=== PATIENT | male | born 1940 | race Caucasian/White ===

== ENCOUNTER 2017-06-12 20:26 | Emergency (ER) | payer OTHER, MEDICAID ==
[~2017-06-12] VITALS: Ht 172.7 cm; Wt 92.7 kg
[2017-06-12 20:29] VITALS: Ht 172.7 cm; Wt 92.7 kg
[2017-06-12] MEDS ORDERED: SOD CHLORIDE 0.9% 500 ML IV STA (20:36)
[2017-06-12 21:29] LABS: BASOPHIL # 0.1 10^3/ul (0.0-0.1); BASOPHILS % 0.5 % (0.0-2.0); EOSINOPHILS # 0.9 10^3/ul (0.0-0.5); EOSINOPHILS % 6.6 % (0.0-7.0); HEMATOCRIT 41.7 % (42.0-52.0); HEMOGLOBIN 14.1 g/dl (14.0-18.0); LYMPHOCYTES # 3.5 10^3/ul (0.8-2.9); LYMPHOCYTES % 26.7 % (15.0-51.0); MEAN CORPUSCULAR HEMOGLOBIN 29.9 pg (29.0-33.0); MEAN CORPUSCULAR HGB CONC 33.8 g/dl (32.0-37.0); MEAN CORPUSCULAR VOLUME 88.3 fl (82.0-101.0); MEAN PLATELET VOLUME 10.1 fl (7.4-10.4); MONOCYTES % 7.6 % (0.0-11.0); NEUTROPHIL # 7.6 10^3/ul (1.6-7.5); PLATELET COUNT 195 10^3/UL (140-415); RED BLOOD COUNT 4.72 10^6/ul (4.70-6.10); RED CELL DISTRIBUTION WIDTH 12.7 % (11.5-14.5); WHITE BLOOD COUNT 13.1 10^3/ul (4.8-10.8)
[2017-06-12 21:50] LABS: CALCIUM 9.4 mg/dl (8.4-10.2); CREATININE 1.26 mg/dl (0.61-1.24); POTASSIUM 3.3 mmol/L (3.5-5.1)
[2017-06-12 21:56] LABS: INR 1.04; PROTIME 13.7 Sec (11.9-14.9); PT RATIO 1.1
[2017-06-12 21:57] LABS: PARTIAL THROMBOPLASTIN TIME 30.1 Sec (25.0-35.0)
[2017-06-12 22:02] LABS: TROPONIN-I 0.014 ng/ml (0.00-0.12)
--- NOTE | 2017-06-12 22:19 | RADRPT ---
PROCEDURE: XR Chest. CLINICAL INDICATION: Chest pain. Syncope TECHNIQUE: Portable AP semi erect view of the chest was obtained. COMPARISON: None. FINDINGS: The cardiomediastinal silhouette is mildly enlarged . The lungs are clear. There is no evidence fo r pleural effusion, pneumothorax or pulmonary vascular congestion. The osseous structures are intac t with no evidence for acute abnormality. Calcification aortic arch is present. RPTAT:HJJR IMPRESSION: 1. Mild cardiac silhouette enlargement without evidence for acute intrathoracic pathology. 2. Aortic atherosclerosis is present. Physician Almaz Date Time Electronically viewed and signed by Physician Almaz on 06/12/2017 22:19 JR/
[2017-06-12 22:24] LABS: ADD UMIC NO; UR ASCORBIC ACID NEGATIVE (NEGATIVE); UR BILIRUBIN (Dip) NEGATIVE (NEGATIVE); UR BLOOD (Dip) NEGATIVE (NEGATIVE); UR CLARITY CLEAR (CLEAR); UR COLOR YELLOW (YELLOW); UR GLUCOSE (Dip) NEGATIVE (NEGATIVE); UR KETONES (Dip) NEGATIVE (NEGATIVE); UR LEUKOCYTE ESTERASE (Dip) NEGATIVE Leu/ul (NEGATIVE); UR NITRITE (Dip) NEGATIVE (NEGATIVE); UR SPECIFIC GRAVITY (Dip) 1.014 (1.003-1.030); UR TOTAL PROTEIN (Dip) NEGATIVE (NEGATIVE); UR UROBILINOGEN (Dip) 2+ mg/dL (NEGATIVE)
--- NOTE | 2017-06-12 22:28 | RADRPT ---
PROCEDURE: CT Brain without contrast. CLINICAL INDICATION: Syncope with head injury. TECHNIQUE: A CT of the brain was performed utilizing axial imaging from the skull base through the vertex without IV contrast. Multiplanar reformatted images were made. Images were reviewed on a [employer] workstation. The CTDIvol is 44.33 mGy and the DLP is 720.23 mGycm. DICOM images are available. One or more of the following dose reduction techniques were utilized: 1.) Automated exposure control 2.) Adjustment of the mA +/- kV according to patient's size 3.) Use of iterative reconstruction technique. COMPARISON: None FINDINGS: Chronic changes of atrophy and small vessel disease white matter. Remote infarcts in the right basal ganglia and in the right frontal leung radiata. There is no intracranial hemorrhage, mass effect, or midline shift. No extra-axial fluid collection is seen. Prominence of bilateral lateral and third ventricles suggest normal pressure hydrocephalus . The density of the brain is otherwise normal, and the islas white matter differentiation appears w ell-preserved. The visualized paranasal sinuses and osseous structures are grossly unremarkable. IMPRESSION: 1. Chronic changes of atrophy and small vessel disease white matter. 2. Prominence of bilateral lateral ventricles and third ventricles suggest a degree of normal pressu re hydrocephalus. 3. Remote infarcts in the right basal ganglia and in the right frontal, T. 4. Otherwise, no acute process in the head. RPTAT: UU Physician Char Date Time Electronically viewed and signed by Physician Char on 06/12/2017 22:28 RS/
[2017-06-12] MEDS ORDERED: SOD CHLORIDE 0.9% 1,000 ML IV STA (22:36)
--- NOTE | 2017-06-12 22:36 | ERD ---
ER Documentation Chief Complaint Chief Complaint [id number] from [facility], back head lac s/p fall HPI 77-year-old male brought in by ambulance from [facility] after a fall from seated position. The patient states that his chair fell over and he hit his head on the ground. He denies any loss of consciousness, dizziness, headache, chest pain or shortness of breath. He was noted to have a small laceration to the back of his head, however he denies any pain at this time. ROS All systems reviewed and are negative except as per history of present illness. Medications Home Meds Unable to Obtain Active Prescriptions or Reported Meds Allergies Allergies: Coded Allergies: No Known Allergy (Unverified , 06/12/17) PMhx/Soc Hx Neurological Disorder: Yes (Dementia) Hx Cardiac Disorders: Yes (HTN, ) Hx Psychiatric Problems: Yes (Depressive d/o, Anxiety) Hx Miscellaneous Medical Probl: Yes (GERD, DM, Hyperlipidemia, Hx of CVA, Chronic pain syndrome) Hx Alcohol Use: No Hx Substance Use: No Hx Tobacco Use: No Smoking Status: Never smoker FmHx Family History: No diabetes Physical Exam Vitals Vital Signs Date Time Temp Pulse Resp B/P Pulse Ox O2 Delivery O2 Flow Rate FiO2 06/12/17 20:29 98.3 70 19 146/97 96 Physical Exam Const: Well-appearing, no apparent distress, nontoxic. Speech is somewhat difficult to understand as the patient has severe stuttering Head: Posterior scalp with 1 cm superficial laceration, wound edges well approximated. Minimal underlying hematoma. No skull depression. Eyes: Normal Conjunctiva, PERRLA, EOMI ENT: Normal External Ears, Nose and Mouth. No intraoral trauma Neck: Full range of motion..~ No meningismus. No C-spine tenderness to palpation Resp: Clear to auscultation bilaterally Cardio: Regular rate and rhythm, no murmurs Abd: Soft, non tender, non distended. Normal bowel sounds Skin: No petechiae or rashes Back: No midline or flank tenderness Ext: No cyanosis, or edema. Normal to inspection and palpation Neur: Awake and alert, oriented 3. Speech is difficult to understand but speech content is normal. Cranial nerves otherwise intact. Strength and sensations intact in all 4 extremities. Psych: Normal Mood and Affect Result Diagram: 06/12/17212406/12/172124 Results 24 hrs Laboratory Tests Test 06/12/17 21:25 06/12/17 21:40 White Blood Count 13.110^3/ul Red Blood Count 4.7210^6/ul Hemoglobin 14.1g/dl Hematocrit 41.7% Mean Corpuscular Volume 88.3fl Mean Corpuscular Hemoglobin 29.9pg Mean Corpuscular Hemoglobin Concent 33.8g/dl Red Cell Distribution Width 12.7% Platelet Count 79442^3/UL Mean Platelet Volume 10.1fl Neutrophils % 58.0% Lymphocytes % 26.7% Monocytes % 7.6% Eosinophils % 6.6% Basophils % 0.5% Nucleated Red Blood Cells % 0.0/100WBC Neutrophils # 7.610^3/ul Lymphocytes # 3.510^3/ul Monocytes # 1.010^3/ul Eosinophils # 0.910^3/ul Basophils # 0.110^3/ul Nucleated Red Blood Cells # 0.010^3/ul Prothrombin Time 13.7Sec Prothrombin Time Ratio 1.1 INR International Normalized Ratio 1.04 Activated Partial Thromboplast Time 30.1Sec Sodium Level 144mmol/L Potassium Level 3.3mmol/L Chloride Level 100mmol/L Carbon Dioxide Level 32mmol/L Anion Gap 15 Blood Urea Nitrogen 11mg/dl Creatinine 1.26mg/dl Glucose Level 121mg/dl Calcium Level 9.4mg/dl Troponin I 0.014ng/ml Urine Color YELLOW Urine Clarity CLEAR Urine pH 6.0 Urine Specific [place] 1.014 Urine Ketones NEGATIVEmg/dL Urine Nitrite NEGATIVEmg/dL Urine Bilirubin NEGATIVEmg/dL Urine Urobilinogen 2+mg/dL Urine Leukocyte Esterase NEGATIVELeu/ul Urine Hemoglobin NEGATIVEmg/dL Urine Glucose NEGATIVEmg/dL Urine Total Protein NEGATIVEmg/dl Current Medications Medications (Trade) Dose Ordered Sig/[place]io Route PRN Reason Start Time Stop Time Status Last Admin Dose Admin Sodium Chloride 500 ml @ 500 mls/hr Q1H STAT IV 06/12/17 20:36 06/12/17 21:35 DC 06/12/17 21:02 Sodium Chloride (NS) 1,000 ml @ 1,000 mls/hr Q1H STAT IV 06/12/17 22:36 06/12/17 23:35 06/12/17 22:49 Procedures/MDM EMERGENT LABS AND DIAGNOSTIC STUDIES: Lab Results above were reviewed and interpreted by me. CBC shows mild leukocytosis BMP shows mild hypokalemia, elevated BUN and creatinine Troponin is within normal limits 12-lead EKG was interpreted by Debra Puente MD: Normal Sinus Rhythm with ventricular rate of 71 beats per minute Normal axis Normal intervals Specific ST and T-wave abnormality No acute ST or T wave changes suggestive of acute ischemia or STEMI. Radiology Results as interpreted by Radiology below were reviewed by Jono Puente MD: Chest x-ray: IMPRESSION: 1. Mild cardiac silhouette enlargement without evidence for acute intrathoracic pathology. 2. Aortic atherosclerosis is present. Physician Almaz Date Time Electronically viewed and signed by Physician Almaz on 06/12/2017 22:19 CT head: Initial Nursing notes reviewed. Previous Medical Records requested via the Electronic Health Record. EMERGENCY DEPARTMENT COURSE / MEDICAL DECISION MAKING: Patient is presenting after a ground-level fall. His vitals are stable. He was noted to have mild hypokalemia and mild AK I versus CKD, which can be followed up as an outpatient. He was given 1.5 L of IV fluids while here. I have a very low suspicion for an acute infection, stroke, or dissection. I do not suspect urinary embolism, acute coronary syndrome or life-threatening arrhythmia. Patient's wound was cleaned but does not require any stitches or heide. He does not seem to have any serious injuries. CT head showed possible normal pressure hydrocephalus. Also showed encephalomalacia from old strokes. I believe the patient is stable for discharge back to his facility. He is nonambulatory at baseline. Follow-up with PCP was recommended within 1-2 days. Patient's blood pressure was elevated (>120/80) but appears stable without evidence of hypertensive emergency or urgency. The patient was counseled about the risks of hypertension and urged to pursue outpatient monitoring and therapy within a week with their primary care physician. Departure Diagnosis: Primary Impression: Fall with no significant injury Encounter type: initial encounter Qualified Code: W19.XXXA - Fall with no significant injury, initial encounter Additional Impressions: Scalp hematoma Encounter type: initial encounter Qualified Code: S00.03XA - Hematoma of scalp, initial encounter Blunt head injury Encounter type: initial encounter Qualified Code: S09.8XXA - Blunt head trauma, initial encounter Scalp laceration Encounter type: initial encounter Qualified Code: S01.01XA - Laceration of scalp, initial encounter Hypokalemia Condition: Stable WILMA PUENTE MD Jun 12, 2017 22:36
[2017-06-13 00:22] VITALS: BP 156/90; PULSE 70; RESP 16; TEMP 98.1
== END 2017-06-13 00:22 | disposition home or self-care (01) ==
LOC: E/R 20:26
DX: S01.01XA Laceration without foreign body of scalp, initial encounter (principal); S09.8XXA Other specified injuries of head, initial encounter; E87.6 Hypokalemia; I10 Essential (primary) hypertension; E11.9 Type 2 diabetes mellitus without complications; R07.9 Chest pain, unspecified; W07.XXXA Fall from chair, initial encounter; Y92.9 Unspecified place or not applicable
CPT/HCPCS: 36415; 70450; 71010; 80048; 81003; 84484; 85025; 85610; 85730; 93005; 99285; J7030; J7040

== ENCOUNTER 2018-06-23 08:46 | Inpatient (IN) | payer MEDICARE, MEDICAID ==
[2018-06-23] VITALS (8 sets, daily range): BP systolic 148–170; BP diastolic 65–90; PULSE 71–95; RESP 18–20; Ht 182.9 cm; Wt 81.0 kg
[~2018-06-23] VITALS: Ht 182.9 cm; Wt 81.0 kg
[2018-06-23] MEDS ORDERED: SODIUM CHLORIDE 0.9% 1L BAG IV* STA (08:55)
[2018-06-23] MEDS ORDERED: CEFEPIME 2GM/50 ML (PMX) 50 ML IVPB STA (08:55)
[2018-06-23] MEDS ORDERED: VANCOMYCIN 1 GM (PMX) 250 ML IVPB ONE (09:00)
[2018-06-23] MEDS ORDERED: ONDANSETRON 4 MG INJ IV STA (09:00)
[2018-06-23] MEDS ORDERED: ACETAMINOPHEN 500 MG TAB PO STA (09:35)
--- NOTE | 2018-06-23 10:20 | ERD ---
ER Documentation Chief Complaint Chief Complaint From [facility] c/o vomiting since this morning HPI This is a 78-year-old male with a history of hypertension and dementia who presents to the emergency room from [facility] for evaluation of coughing, and vomiting since this morning. Patient is unable to give a detailed history secondary to his clinical condition at this time. [facility] notes this patient is not had a fever and is not had any blood in his vomitus. ROS All systems reviewed and are negative except as per history of present illness. Medications Home Meds No Active Prescriptions or Reported Meds Allergies Allergies: Coded Allergies: No Known Allergy (Unverified , 06/12/17) PMhx/Soc Hx Neurological Disorder: Yes (Dementia) Hx Cardiac Disorders: Yes (HTN, ) Hx Psychiatric Problems: Yes (Depressive d/o, Anxiety) Hx Miscellaneous Medical Probl: Yes (GERD, DM, Hyperlipidemia, Hx of CVA, Chronic pain syndrome) Hx Alcohol Use: No Hx Substance Use: No Hx Tobacco Use: No Physical Exam Vitals Vital Signs Date Temp Pulse Resp B/P (MAP) Pulse Ox O2 O2 Flow FiO2 Time Delivery Rate 06/23/18 Nasal 10:15 Cannula 06/23/18 100.2 110 18 152/85 94 08:50 (107) Physical Exam INITIAL VITAL SIGNS: Reviewed by me GENERAL: The patient is well developed, warm to touch HEENT: Pupils equal, round, and reactive to light. EOMI. There is no scleral icterus. NECK: C-spine is soft and supple, there is no meningismus. There is no cervical lymphadenopathy. LUNGS: Rhonchi in the bilateral lower lobes HEART: Tachycardic, no murmurs, clicks, rubs or gallops. ABDOMEN: Soft, non-tender, non-distended. There are bowel sounds in all four quadrants. No rebound or guarding. EXTREMITIES: There is no peripheral cyanosis or edema. No focal swelling or erythema. NEUROLOGICAL: The patient moves all four extremities with 5/5 strength. Cranial nerves II - XII are intact. Normal gait. Alert and oriented SKIN: There is no apparent rash or petechiae. HEME/LYMPHATIC: There is no evidence of excessive bruising or lymphedema. PSYCHIATRIC: The patient does not appear anxious or depressed. Result Diagram: 06/23/18 0910 06/23/18 0910 Results 24 hrs Laboratory Tests Test 06/23/18 09:10 06/23/18 09:24 06/23/18 09:43 White Blood Count 23.3 10^3/ul Red Blood Count 5.32 10^6/ul Hemoglobin 15.4 g/dl Hematocrit 45.8 % Mean Corpuscular Volume 86.1 fl Mean Corpuscular Hemoglobin 28.9 pg Mean Corpuscular 33.6 g/dl Hemoglobin Concent Red Cell Distribution Width 13.2 % Platelet Count 232 10^3/UL Mean Platelet Volume 9.9 fl Immature Granulocytes % 1.200 % Neutrophils % 91.1 % Lymphocytes % 3.5 % Monocytes % 3.9 % Eosinophils % 0.0 % Basophils % 0.3 % Nucleated Red Blood Cells % 0.0 /100WBC Immature Granulocytes # 0.280 10^3/ul Neutrophils # 21.2 10^3/ul Lymphocytes # 0.8 10^3/ul Monocytes # 0.9 10^3/ul Eosinophils # 0.0 10^3/ul Basophils # 0.1 10^3/ul Nucleated Red Blood Cells # 0.0 10^3/ul Sodium Level 141 mmol/L Potassium Level 4.5 mmol/L Chloride Level 105 mmol/L Carbon Dioxide Level 25 mmol/L Anion Gap 11 Blood Urea Nitrogen 14 mg/dl Creatinine 1.47 mg/dl Est Glomerular Filtrat mL/min Rate mL/min Glucose Level 193 mg/dl Calcium Level 9.5 mg/dl Troponin I 0.017 ng/ml Urine Color MARIA DEL CARMEN Urine Clarity CLEAR Urine pH 6.0 Urine Specific [place] 1.014 Urine Ketones NEGATIVE mg/dL Urine Nitrite NEGATIVE mg/dL Urine Bilirubin 1+ mg/dL Urine Urobilinogen 2+ mg/dL Urine Leukocyte Esterase NEGATIVE [place]/ul Urine Microscopic RBC 23 /HPF Urine Microscopic WBC 1 /HPF Urine Hemoglobin 1+ mg/dL Urine Glucose 1+ mg/dL Urine Total Protein 1+ mg/dl POC Venous Lactate 3.0 mmol/L Current Medications Medications Dose Sig/[place] Start Time Status Last (Trade) Ordered Route PRN Stop Time Admin Dose Reason Admin Sodium 2,430 ml BOLUS OVER 2 06/23/18 DC 06/23/18 Chloride HOURS STAT 08:55 09:30 (NS) IV* 06/23/18 08:56 Cefepime HCl 50 ml @ ONCE STAT 06/23/18 DC 12/29/18 100 mls/hr IVPB 08:55 09:30 06/23/18 09:24 Vancomycin 250 ml @ ONCE ONCE 06/23/18 HCl 125 mls/hr IVPB 09:00 06/23/18 10:59 Ondansetron 4 mg ONCE STAT 06/23/18 DC 06/23/18 HCl (Zofran IV 09:00 09:29 Inj) 06/23/18 09:01 500 mg ONCE STAT 06/23/18 DC Acetaminophen PO 09:35 (Tylenol 06/23/18 Tab) 09:36 Procedures/MDM Chest X-ray 1V Interpreted by me: Soft Tissue: No acute abnormalities Bones: No acute abnormalities Mediastinum/Cardiac Silhouette/Lungs: Interstitial infiltrates EKG: Rate/Rhythm: Sinus tachycardia with first-degree AV block QRS, ST, T-waves: [No changes consistent w/ acute ischemia] Impression: Sinus tachycardia with first-degree AV block Patient's infectious symptoms have not stabilized and the patient is at risk of rapid decompensation. The patient will be admitted for careful hydration, antibiotic therapy, and infectious source control. Severe Sepsis Assessment: Infectious Source: Pneumonia End organ damage indicated by: [Lactate > 2.0 mmol/L Hypotension( SBP < 90 or >40 mmHG drop or MAP < 65) Acute Resp Failure (sat < 92% w/o oxygen) Front End Specialist > 2.0 INR > 1.5 Plt < 100 Bili > 2] Severe Sepsis Managment: Blood Cultures X 2 before broad spectrum antibiotics initiated within 3 hours of recognition. 30 ml/kg NS bolus Completed Initial Lactate: 3.0 Repeat Lactate pending Critical Care: Excluding all billable procedures Time: 55] minutes Treatments/Evaluations: Emergent fluid management, while maintaining close respiratory support. Immediate broad spectrum antibiotic therapy. Simultaneous assessment for possible sources in order to direct therapy. Consideration for invasive and chemical support to prevent respiratory or cardiac collapse. Septic Shock Assessment (1 hour post 30 ml/kg fluid bolus): Hypotension (SBP < 90 or 40 mmHg drop, MAP < 65): [No] Lactic acid > 4.0 [No] Perfusion Reassessment for Septic Shock: Temp 99.8 Pulse 98, RR 16], BP 139/93 Heart Exam: [Tachycardic] Lung Exam: [No Crackles] Capillary Refill: [Delayed] Peripheral Pulses: [Radially present] Skin: [Mottled, pale] Hypotensive Treatment (not required for isolated lactic acid elevation): Comfort Care: No Central LIne: no Vasopressor started: none I considered further perfusion assessment with CVP measurement, SCVO2, bedside ultrasound volume assessment, passive leg raise, trial of further fluid bolus. And preceded with further fluid bolus Accepting Care Team: Current data and ongoing care discussed. Time: 1019 time of admission Primary Provider: Maeve Medley Data: none Departure Diagnosis: Primary Impression: Sepsis Additional Impressions: Pneumonia Acute vomiting Condition: Stable CHANTALE DONIS DO Jun 23, 2018 10:20
[2018-06-23] MEDS ORDERED: ACETAMINOPHEN 325 MG TAB PO PRN (10:30)
[2018-06-23] MEDS ORDERED: ONDANSETRON 4 MG INJ IV PRN ×2 (10:30→13:00)
--- NOTE | 2018-06-23 12:43 | HP ---
Date/Time of Note Date/Time of Note DATE: 06/23/18 TIME: 12:40 Assessment/Plan VTE Prophylaxis Pharmacological prophylaxis: heparin Lines/Catheters IV Catheter Type (from Nrs): Saline Lock Assessment/Plan Hospital Course 78 yo male with h/o CVA leading to expressive aphasia who was sent to ED from OR for evaluation of vomiting which occured today. Patient currently seems asymptomatic. No nausea sypmtoms now, no belly pain. Appears to have resolved - Will observe today and provide symptomatic care - Continue home chintan Negron return to OR tomorrow if remains stable Result Diagram: 06/23/18 0910 06/23/1810 Results 24hrs Laboratory Tests Test 06/23/18 09:10 06/23/18 09:24 06/23/18 09:43 06/23/18 09:53 White Blood 23.3 #H Count Red Blood Count 5.32 Hemoglobin 15.4 Hematocrit 45.8 Mean Corpuscular 86.1 Volume Mean Corpuscular 28.9 L Hemoglobin Mean Corpuscular 33.6 Hemoglobin [place] nt Red Cell 13.2 Distribution Width Platelet Count 232 Mean Platelet 9.9 Volume Immature 1.200 H Granulocytes % Neutrophils % 91.1 H Lymphocytes % 3.5 L Monocytes % 3.9 Eosinophils % 0.0 Basophils % 0.3 Nucleated Red 0.0 Blood Cells % Immature 0.280 H Granulocytes # Neutrophils # 21.2 H Lymphocytes # 0.8 Monocytes # 0.9 Eosinophils # 0.0 Basophils # 0.1 Nucleated Red 0.0 Blood Cells # Sodium Level 141 Potassium Level 4.5 Chloride Level 105 Carbon Dioxide 25 Level Anion Gap 11 Blood Urea 14 Nitrogen Creatinine 1.47 H Est Glomerular Filtrat Rate mL/min Glucose Level 193 Calcium Level 9.5 Troponin I 0.017 Urine Color MARIA DEL CARMEN Urine Clarity CLEAR Urine pH 6.0 Urine Specific 1.014 [place] Urine Ketones NEGATIVE Urine Nitrite NEGATIVE Urine Bilirubin 1+ H Urine 2+ H Urobilinogen Urine Leukocyte NEGATIVE Esterase Urine 23 H Microscopic RBC Urine 1 Microscopic WBC Urine Hemoglobin 1+ H Urine Glucose 1+ H Urine Total 1+ H Protein POC Venous 3.0 *H Lactate Prothrombin Time 14.6 Prothrombin Time 1.1 Ratio INR 1.12 International Normalized Ratio Activated 21.9 L Partial Thrombop last Time HPI/ROS Admit Date/Time Admit Date/Time Jun 23, 2018 at 10:15 Hx of Present Illness 78 yo male with h/o CVA, hypertension who presents from OR for episode of nausea and vomiting patient is alert and responisve to commands, but has expressive aphasia and can't provide detalied history. From information provided, [facility]. Currently he shakes his head "no" to if he feels nauseous or has any pain in his belly. Shakes head "yes" when I ask him if he feels normal. And says "yes" to wanting to eat food PMH/Family/Social Past Medical History CVA Medications Current Medications Ondansetron HCl (Zofran Inj) 4 mg ER BRIDGE PRN IV NAUSEA AND/OR VOMITING; Start 06/23/18 at 10:30; Stop 06/24/18 at 10:29 Acetaminophen (Tylenol Tab) 650 mg ER BRIDGE PRN PO MILD PAIN(1-3)OR ELEVATED TEMP; Start 06/23/18 at 10:30; Stop 06/24/18 at 10:29 Coded Allergies: No Known Allergy (Unverified , 06/12/17) Past Surgical History Past Surgical Hx: no surgical history Family History Significant Family History: no pertinent family hx Social History Alcohol Use: none Smoking Status: Never smoker Drug Use: none Exam/Review of Systems Vital Signs Vitals Vital Signs Date Temp Pulse Resp B/P (MAP) Pulse Ox O2 O2 Flow FiO2 Time Delivery Rate 06/23/18 100.0 99 18 146/99 96 11:08 (115) 06/23/18 Nasal 10:15 Cannula Exam Exam Expressive aphasia Constitutional: alert, oriented, well developed Psych: no complaints, nl mood/affect Cardiovascular: regular rate and rhythm, nl pulses Gastrointestinal: soft, nl liver, spleen, non-tender Neurological: FOOD EDITOR II-XII intact, nl mental status, nl speech, nl strength COLUMBA CARO MD Jun 23, 2018 12:43
[2018-06-23] MEDS ORDERED: HYDROCODONE/APAP (5/325) TAB PO PRN (13:00)
[2018-06-23] MEDS ORDERED: NACL 0.9% 3 ML SYG IV SCH (13:00)
[2018-06-23] MEDS: AMLODIPINE 5 MG TAB PO SCH (14:13)
--- NOTE | 2018-06-23 14:55 | NUR ---
Admitted patient from ED in stable condition. 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 Patient not a good historian due to dementia & expressive aphasia. Skin check done with Jeanne Cazares RN no skin breakdown noted. Oriented patient to the unit & fall precautions explained. Bed alarm on, call light within easy reach. Kept patient comfortable. Will continue plan of care.
--- NOTE | 2018-06-23 15:31 | NUR ---
LActic acid 2.5, notified Dr Mcfarlane, no new order. Will continue to monitor patient.
[2018-06-23] MEDS: PANTOPRAZOLE (EC) 40 MG TAB PO SCH (17:43)
--- NOTE | 2018-06-23 18:22 | NUR ---
Patient in bed, no apparent distress noted. Denies chest & no SOB noted. Kept patient comfortable at all times.
[2018-06-24] VITALS (10 sets, daily range): BP systolic 162–174; BP diastolic 83–93; PULSE 70–87; RESP 17–18
[2018-06-24] MEDS: PANTOPRAZOLE (EC) 40 MG TAB PO SCH ×2 (05:54→17:55)
--- NOTE | 2018-06-24 06:41 | NUR ---
end of shift report No recurrence of vomiting/nausea. no complaint. BP 150-160's. no PRN meds for hi BP
[2018-06-24] MEDS: AMLODIPINE 5 MG TAB PO SCH (08:51)
[2018-06-24] MEDS: ASPIRIN 81 MG TAB PO SCH (08:51)
[2018-06-24] MEDS: CLOPIDOGREL 75 MG TAB PO SCH (08:51)
[2018-06-24] MEDS: ENOXAPARIN 30 MG/0.3 ML SYG SC SCH (08:55)
[2018-06-24] MEDS ORDERED: VANCOMYCIN IV PER PHARMACY XX SCH (12:00)
--- NOTE | 2018-06-24 12:31 | NUR ---
NEW VANCOMYCIN ORDERS: 1500 MG LOADING DOSE THEN 1000MG IVPB Q24HR BUN/CR 15/1.46 WBC 18.5
[2018-06-24] MEDS: PIPER-TAZO 3.375 GM IV (PMX) 100 ML IVPB SCH ×2 (13:13→21:31)
[2018-06-24] MEDS ORDERED: VANCOMYCIN 1.5 GM in SOD CHLORIDE 0.9% 250 ML IVPB SCH (13:15)
--- NOTE | 2018-06-24 14:55 | PN ---
Date/Time of Note Date/Time of Note DATE: 06/24/18 TIME: 14:52 Assessment/Plan VTE Prophylaxis Risk score (from Ns)>0 risk: 7 SCD applied (from Ns): Yes Pharmacological prophylaxis: heparin Lines/Catheters IV C[facility]ter Type (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 Patient after arrival has been asymptomatic however has developed fever and transaminitis as well as signs of CHF Fever, lactic acidosis - On empiric vanco/zosyn, narrow pending cultures Transaminitis: - No RUQ symptoms but need to r/o cholecystitis given fever - Perhaps from liver congestion from CHF CHF: - lasix, check TTE Discharge planning: Back to ID when stable Result Diagram: 06/24/18 0511 06/24/18 0511 Results 24hrs Laboratory Tests Test 06/24/18 05:09 06/24/18 05:11 06/24/18 13:12 B-Type Natriuretic Peptide 1040 H White Blood Count 18.5 #H Red Blood Count 4.83 Hemoglobin 14.0 Hematocrit 42.3 Mean Corpuscular Volume 87.6 Mean Corpuscular Hemoglobin 29.0 Mean Corpuscular 33.1 Hemoglobin Concent Red Cell Distribution Width 13.2 Platelet Count 200 Mean Platelet Volume 9.7 Immature Granulocytes % 0.900 H Neutrophils % 82.9 H Lymphocytes % 9.0 L Monocytes % 6.5 Eosinophils % 0.4 Basophils % 0.3 Nucleated Red Blood Cells % 0.0 Immature Granulocytes # 0.160 H Neutrophils # 15.3 H Lymphocytes # 1.7 Monocytes # 1.2 H Eosinophils # 0.1 Basophils # 0.1 Nucleated Red Blood Cells # 0.0 Sodium Level 145 H Potassium Level 3.5 Chloride Level 108 Carbon Dioxide Level 27 Anion Gap 10 Blood Urea Nitrogen 15 Creatinine 1.46 H Est Glomerular Filtrat Rate mL/min Glucose Level 207 Hemoglobin A1c 6.9 H Calcium Level 9.1 Total Bilirubin 3.6 H Direct Bilirubin 2.30 H Indirect Bilirubin 1.3 H Aspartate Amino 415 H Transf (AST/SGOT) Alanine 362 H Aminotransferase (ALT/SGPT) Alkaline Phosphatase 104 Total Protein 7.0 Albumin 3.8 Globulin 3.20 Albumin/Globulin Ratio 1.18 Troponin I 0.015 Subjective 24 Hr Interval Summary Free Text/Dictation Patient has developed fever and transaminitis He denies any complaints whatsoever No SOB, no RUQ pain Exam/Review of Systems Vital Signs Vitals Vital Signs Date Temp Pulse Resp B/P (MAP) Pulse Ox O2 O2 Flow FiO2 Time Delivery Rate 06/24/18 98.1 79 18 167/89 94 11:30 (115) 06/23/18 Room Air 16:21 Intake and Output 06/23/18 06/23/18 06/24/18 1515:00 23:00 07:00 IntakeIntake Total 300 ml 150 ml OutputOutput Total 1 ml 2 ml BalanceBalance 299 ml 148 ml Exam Expressive aphasia but responds normally with one word answers Comfortable ++ JVD Breathing comfortably 2/6 systolic blowing murmur RRR Ext without edema Abdomen soft nt nd Medications Medications Current Medications Aspirin (Aspirin) 81 mg DAILY PO Last administered on 06/24/18at 08:51; Admin Dose 81 MG; Start 06/24/18 at 09:00 Clopidogrel Bisulfate (plaVIX) 75 mg DAILY PO Last administered on 06/24/18at 08:51; Admin Dose 75 MG; Start 06/24/18 at 09:00 Pantoprazole (Protonix Tab) 40 mg BID@,18 PO Last administered on 06/24/18at 05:54; Admin Dose 40 MG; Start 06/23/18 at 18:00 Amlodipine Besylate (Norvasc) 5 mg DAILY PO Last administered on 06/24/18at 08:51; Admin Dose 5 MG; Start 06/23/18 at 13:00 IV Flush (NS 3 ml) 3 ml PER PROTOCOL IV ; Start 06/23/18 at 13:00 Ondansetron HCl (Zofran Inj) 4 mg Q6H PRN IV NAUSEA AND/OR VOMITING Last administered on 06/24/18at 11:40; Admin Dose 4 MG; Start 06/23/18 at 13:00 Acetaminophen/ Hydrocodone Bitart ([place] (5/325)) 1 tab Q6H PRN PO MODERATE PAIN LEVEL 4-6; Start 06/23/18 at 13:00 Enoxaparin Sodium (Lovenox) 30 mg DAILY SC Last administered on 06/24/18at 08:55; Admin Dose 30 MG; Start 06/24/18 at 09:00 Vancomycin HCl (Vanco Iv Per Pharmacy) VANCOMYCIN PER PHARMACY PER PROTOCOL XX ; Start 06/24/18 at 12:00 Piperacillin Sod/ Tazobactam Sod 100 ml @ 200 mls/hr Q8 IVPB Last administered on 06/24/18at 13:13; Admin Dose 200 MLS/HR; Start 06/24/18 at 12:35 Vancomycin HCl 1.5 gm/Sodium Chloride 250 ml @ 83.333 mls/ hr NOW IVPB Last administered on 06/24/18at 14:30; Admin Dose 83.333 MLS/HR; Start 06/24/18 at 13:15; Stop 06/24/18 at 16:14 Vancomycin HCl 250 ml @ 125 mls/hr Q24H IVPB ; Start 06/25/18 at 13:00 Furosemide (Lasix) 20 mg BID DIURETICS IV ; Start 06/24/18 at 15:00 COLUMBA CARO MD Jun 24, 2018 14:55
[2018-06-24] MEDS: FUROSEMIDE 20 MG INJ IV SCH (15:26)
--- NOTE | 2018-06-24 18:54 | NUR ---
pt is a/o x1-2 , able to answer yes or no , but not able to express himself. pt is bedbound but he could move himself. SR and room air .will monitoring WBC level , call light within reach , hourly rounding . No complain at this time resting in bed.
[2018-06-25] VITALS (10 sets, daily range): BP systolic 135–175; BP diastolic 80–85; PULSE 60–85; RESP 17–19
[2018-06-25] MEDS: PANTOPRAZOLE (EC) 40 MG TAB PO SCH (05:02)
[2018-06-25] MEDS: FUROSEMIDE 20 MG INJ IV SCH (05:02)
[2018-06-25] MEDS: PIPER-TAZO 3.375 GM IV (PMX) 100 ML IVPB SCH ×2 (05:02→14:05)
--- NOTE | 2018-06-25 06:07 | NUR ---
END OF THE SHIFT:PT,IS AA,O X 2,FOLLOWS COMMANDS,APHASIC.AFEBRILE.VS-WNL.1 EPISODE OF VOMITING (200CC) NOTED.DENIES ABDOMINAL PAIN AND NAUSEA.PT. IS INCONTINENT.PLAN -TRANSFER TO SNF SOON HE IS STABLE.
[2018-06-25] MEDS: AMLODIPINE 5 MG TAB PO SCH (08:41)
[2018-06-25] MEDS: CLOPIDOGREL 75 MG TAB PO SCH (08:41)
[2018-06-25] MEDS: ASPIRIN 81 MG TAB PO SCH (08:41)
[2018-06-25] MEDS: ENOXAPARIN 30 MG/0.3 ML SYG SC SCH (08:48)
--- NOTE | 2018-06-25 11:47 | NUR ---
NUTRITION NOTE: Noted elevated BG 256; A1C 6.9%. Not currently on diabetic meds. Rec to change diet to: carb controlled diet. Thank you!
[2018-06-25] MEDS: POTASSIUM CHLORIDE (SR) 20 MEQ TAB PO SCH ×2 (12:32→16:10)
[2018-06-25] MEDS ORDERED: VANCOMYCIN 1 GM 250 ML IVPB SCH (13:00)
--- NOTE | 2018-06-25 14:00 | NUR ---
CM NOTE RECEIVED DISCHARGE ORDER TO TRANSFER PT BACK TO [facility], THIS CM CALLED AND S/W JENY AT [facility] AND MADE HER AWARE OF THE TRANSFER PLAN PER JENY PT IS OK TO RETURN, CM ARRANGED AMBULANCE TRANSFER WITH [facility] [phone] S/W CON AND PT HAS A [address] PRELIMINARY TIME TRIP NUMBER [id number]. CRICKET CLARK RN,[facility] EXT:[id number]
--- NOTE | 2018-06-25 17:08 | DS ---
Date/Time of Note Date/Time of Note DATE: 06/25/18 TIME: 17:03 Discharge Summary Admission/Discharge Info Admit Date/Time Jun 23, 2018 at 10:15 Discharge Date/Time Jun 25, 2018 at 16:31 Discharge Diagnosis 1. Sepsis likely secondary to viral gastroenteritis-resolved Cultures are negative No indication for further antibiotics Patient with persistent chronic leukocytosis 2. History of CVA with expressive aphasia DC back to senior care 3. Transaminitis likely viral LFTs are trending down Hepatitis panel is negative Patient Condition: Good Hospital Course Patient is a 78-year-old male with a history of CVA with expressive aphasia who presents from senior care with vomiting and found to be septic with fever and leukocytosis. Patient did have elevated LFTs which did trend down, cultures were negative. Patient sepsis did resolve and presentation did appear to be consistent with a viral syndrome. Of note hepatitis panel was negative, patient's fever did resolve and patient's leukocytosis did improve but did persist, of note patient does have chronic leukocytosis. Patient was stable for DC back to senior care, on the day of discharge patient's vitals, labs exam are stable patient is no acute complaints questions answered. Home Meds No Active Prescriptions or Reported Meds Follow-up Plan [facility]-up with physicians at [facility] Primary Care Provider Not On Staff Doctor Time spent on discharge: > 30 minutes JOHN CARVER Jun 25, 2018 17:08
--- NOTE | 2018-06-28 19:50 | RADRPT ---
Echocardiogram Report Patient Name: REBA BOJORQUEZ Gender: Male Date: 1940 Study Date: 24-Jun-2018 Prosthetist: Mini Mcnair RDCS Location: [facility] Ref. Physician: COLUMBA CARO Quality: Technically Difficult Study Procedures: Transthoracic echocardiogram with complete 2D, M-Mode, and doppler examination. Indications: Congestive Heart Failure. 2D/M Mode Doppler Measurement Value Normal Ranges Measurement Value Normal Ranges LVIDd 2D 3.6 3.5 - 5.6 cm ARLIN Vmax 1.4 cm2 LVIDs 2D 2.3 2.1 - 4.1 cm AV Peak Harjit 2.0 m/sec FS 2D 36.7 % AV Peak PG 15.0 mmHg LVPWd 2D 1.1 0.6 - 1.1 cm LVOT Peak Harjit 0.7 m/sec IVSd 2D 1.2 0.6 - 1.1 cm LVOT Peak PG 2.0 mmHg IVS/LVPW 2D 1.1 MV E Peak Harjit 0.6 m/sec AoR Diam 2D 2.9 2.0 - 3.7 cm MV A Peak Harjit 0.8 m/sec LA/Ao 2D 1 0 - 1 MV E/A 0.7 EDV 2D 47.4 cm3 MV Decel Time 222 msec ESV 2D 12.0 cm3 MV E/A 0.7 LA Dimen 2D 3.6 2.3 - 4.0 cm LVOT Area 3.8 cm2 Findings Left Ventricle: Normal left ventricular systolic function. Normal left ventricular cavity size. Mild concentric left ventricular hypertrophy. Ejection fraction is visually estimated at 65 %. Tissue Doppler/Mitral Doppler indices are consistent with impaired relaxation (Stage I diastolic dysfunction). Right Ventricle: Normal right ventricular size. Normal right ventricular systolic function. Left Atrium: The left atrium is normal in size. Right Atrium: The right atrium is normal in size. Mitral Valve: Normal appearance of the mitral valve. No mitral valve regurgitation is seen. Aortic Valve: No significant aortic stenosis or insufficiency. Aortic cusps appear mildly calcified. Tricuspid Valve: Normal appearance of the tricuspid valve. There is trace tricuspid regurgitation. Pulmonic Valve: Normal pulmonic valve appearance. No evidence of pulmonic regurgitation. Pericardium: Normal pericardium with no significant pericardial effusion. Aorta: Normal aortic root. IVC: The IVC is not well visualized. Conclusions 1.The left ventricle is normal in size and systolic function. 2.Estimated left ventricular ejection fraction of 65%. 3.Mild concentric left ventricular hypertrophy. Grade 1 diastolic dysfunction. Electronically Signed By: Vaibhav Elliott 28-Jun-2018 19:49:12 -0800 Patient Name: REBA BOJORQUEZ Study Date: 24-Jun-2018 [id number]
== END 2018-06-25 16:31 | DRG 872 ==
LOC: E/R 08:46 → 6WM 10:15
PROVIDERS: ADMIT Internal Medicine; ATTEND Internal Medicine
DX: A41.9 Sepsis, unspecified organism (principal); A08.4 Viral intestinal infection, unspecified; I11.0 Hypertensive heart disease with heart failure; I50.9 Heart failure, unspecified; I69.320 Aphasia following cerebral infarction
CPT/HCPCS: 36415; 71045; 76705; 80048; 80053; 81001; 83036; 83605; 83880; 84484; 85025; 85610; 85730; 86704; 86709; 86803; 87040; 87086; 87340; 87400; 93005; 93306; 96374; 96375; J0692; J1650; J1940; J2405; J2543; J3370; J7030; J7050